=== PATIENT | female | born 1995 | race Caucasian/White ===

== ENCOUNTER 2016-11-10 11:15 | Inpatient (IN) | payer BC ==
[~2016-11-10] VITALS: Ht 170.2 cm; Wt 118.4 kg
[~2016-11-10 11:15] MED LIST: BCPILLS PO; BUPR-83 PO
[2016-11-10 11:54] LABS: URINE APPEARANCE CLEAR (CLEAR); URINE BILIRUBIN NEG (NEG); URINE COLOR YELLOW; URINE NITRITE NEG (NEG); URINE PH 6.5 (4.5-7.5); URINE SPECIFIC GRAVITY 1.025 (1.000-1.030); UROBILINOGEN NEG (NEG); ZZUR CULT IF INDIC CLEAN CATCH NO
[2016-11-10 11:56] LABS: MANUAL MICROSCOPIC REQUIRED? NO; REVIEW REQ? NO
[2016-11-10 12:12] LABS: BASO % 0.2 %; BASO ABS # 0.02 K/uL (0-0.2); COMPLETE YES; EOS % 0.8 %; HEMATOCRIT 40.5 % (37-47); IG% 0.2 %; LYMPH % 26.1 %; LYMPH ABS # 2.28 K/uL (1.2-3.4); MEAN CORPUSCULAR HGB CONC 34.8 g/dl (32-36); MEAN PLATELET VOLUME 10.4 fL (7.4-10.4); NEUT % 68.7 %; PLATELET COUNT 302 K/uL (130-400); RED BLOOD COUNT 4.55 M/uL (4.2-5.4); WHITE BLOOD COUNT 8.72 K/uL (4.8-10.8)
[2016-11-10 12:18] LABS: BENZODIAZEPINE, URINE NEG (NEG); COCAINE,URINE NEG (NEG); PHENCYCLIDINE, URINE NEG (NEG)
[2016-11-10 12:30] LABS: BUN/CREATININE RATIO 22.8 (10-20); CALCIUM 9.2 mg/dl (8.5-10.1); CREATININE 0.85 mg/dl (0.60-1.20)
[2016-11-10 12:33] LABS: ACETAMINOPHEN < 2 ug/ml (10-30)
[2016-11-10 12:40] LABS: ALB/GLOB RATIO 1.2 (0.9-2); THYROID STIMULATING HORMONE 0.811 uIu/ml (0.300-4.500)
[2016-11-10] MEDS ORDERED: hydrOXYzine HCL 25 MG TAB PO PRN (14:45)
[2016-11-10] MEDS ORDERED: ALUMINUM/MAGNESIUM SUSP 30 ML UDC PO PRN (14:45)
[2016-11-10] MEDS ORDERED: BISMUTH SUBSALICYLATE PER ML OMNICELL CHARGE PO PRN (14:45)
[2016-11-10] MEDS ORDERED: MAGNESIUM HYDROXIDE SUSP 30 ML UDC PO PRN (14:45)
[2016-11-10] MEDS ORDERED: ACETAMINOPHEN 325 MG TAB PO PRN (14:45)
[2016-11-10] MEDS ORDERED: SODIUM CHLORIDE 0.65% NA SOLN 45 ML (OCEAN) PRN (14:45)
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
[2016-11-10 16:51] VITALS: O2SAT 97
[2016-11-10 17:24] VITALS: BP 135/78; PULSE 72; TEMP 37; Ht 170.2 cm; Wt 118.4 kg
[2016-11-10] MEDS ORDERED: NURSING VERBAL MED ORDER ONE (19:30)
[2016-11-10] MEDS: NORETHINDRONE PO SCH (19:41)
[2016-11-10] MEDS ORDERED: INFLUENZA ADMINISTRATION CHARGE ONE (22:00)
[2016-11-10] MEDS ORDERED: INFLUENZA VIRUS QUAD VACCINE 0.5 ML SYR IM. ONE (22:00)
[2016-11-11 07:00] VITALS: BP_SYST 122; BP_SYST 128; BP_DIAS 76; BP_DIAS 84; PULSE 54; PULSE 73; TEMP 36.3
[2016-11-11] MEDS ORDERED: NORETHINDRONE PO SCH (09:00)
[2016-11-11 09:53] LABS: PREG INTERNAL NEGATIVE QC NEG CLEAR BACKGROUND; PREG INTERNAL POSITIVE QC POS CONTROL LINE
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
[2016-11-11] MEDS ORDERED: SERTRALINE HCL 50 MG TAB PO ONE (11:18)
[2016-11-11] MEDS: NORETHINDRONE PO SCH (19:32)
[2016-11-11] MEDS: hydrOXYzine HCL 25 MG TAB PO PRN (22:02)
[2016-11-12 07:03] VITALS: BP_SYST 106; BP_SYST 114; BP_DIAS 72; BP_DIAS 73; PULSE 49; PULSE 73; TEMP 36.6
[2016-11-12] MEDS: SERTRALINE HCL 50 MG TAB PO SCH (09:33)
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
[2016-11-12] MEDS: NORETHINDRONE PO SCH (19:50)
[2016-11-12] MEDS: hydrOXYzine HCL 25 MG TAB PO PRN (21:20)
[2016-11-13 07:04] VITALS: BP_SYST 106; BP_SYST 110; BP_DIAS 68; BP_DIAS 71; PULSE 47; PULSE 67; TEMP 36.5
[2016-11-13] MEDS: SERTRALINE HCL 50 MG TAB PO SCH (09:03)
--- NOTE | 2016-11-13 10:32 | Psych Management Progress Note ---
Psychiatry Miscellaneous Date of Service: Nov 13, 2016. Patient seen, MS assessed. Rates mood as 6/10, desires to move toward discharge planning. Cooperative with care and treatment plan as outlined by PROPERTY AND EQUIPMENT CLERK. Encouraged participation in therapeutic activities.
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
[2016-11-13] MEDS: NORETHINDRONE PO SCH (19:38)
[2016-11-13] MEDS: hydrOXYzine HCL 25 MG TAB PO PRN (20:30)
[2016-11-14 06:57] VITALS: BP_SYST 110; BP_SYST 119; BP_DIAS 74; PULSE 51; PULSE 60; TEMP 36.5
[2016-11-14] MEDS: SERTRALINE HCL 50 MG TAB PO SCH (09:16)
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
[2016-11-14] MEDS: NORETHINDRONE PO SCH (19:38)
[2016-11-14] MEDS: hydrOXYzine HCL 25 MG TAB PO PRN (20:30)
[2016-11-15 07:01] VITALS: BP_SYST 117; BP_SYST 119; BP_DIAS 70; BP_DIAS 74; PULSE 56; PULSE 57; TEMP 36.6
[2016-11-15] MEDS: SERTRALINE HCL 50 MG TAB PO SCH (08:34)
[2016-11-15] MEDS ORDERED: SERT1TAB68 PO (09:32)
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
[2016-11-16 14:34] LABS: SYNTHETIC CANNABINOIDS QL URIN NEGATIVE (Negative)
== END 2016-11-15 10:04 | disposition home or self-care (01) | DRG 881 ==
LOC: C.EDB 11:16 → C.MHU 14:33 → ENRESERV 16:27
PROVIDERS: ADMIT Psychiatry & Neurology Psychiatry; ATTEND Psychiatry & Neurology Psychiatry
DX: F32.9 Major depressive disorder, single episode, unspecified (principal); Z68.41 Body mass index [BMI] 40.0-44.9, adult; R45.851 Suicidal ideations; F41.1 Generalized anxiety disorder; F10.10 Alcohol abuse, uncomplicated; E66.9 Obesity, unspecified; F12.10 Cannabis abuse, uncomplicated

== ENCOUNTER → 2017-05-12 | Outpatient (CLI) | payer OTHER ==
[~2017-05-12] MED LIST changes: -BUPR-83 PO
== END | disposition home or self-care (01) ==
LOC: C.LABSPEC 14:38
PROVIDERS: ATTEND Physician Assistant
DX: Z30.430 Encounter for insertion of intrauterine contraceptive device (principal)

== ENCOUNTER 2019-05-05 23:19 | Inpatient (IN) ==
[2019-05-05] MEDS ORDERED: LORazepam 1 MG/2 ML VIAL IV STA (23:40)
[2019-05-05] MEDS ORDERED: SODIUM CHLORIDE 0.9% 1000ML 1,000 ML IV ONE (23:40)
--- NOTE | 2019-05-05 23:46 | Emergency Department Note ---
ED Provider Note Name: RENETTA GIBSON Age: 23 Sex: F Arrives Via: Walk-In Informant: Patient, Mother ED Provider: Milton Nichole MD Chief Complaint: Overdose Impression: Acute Drug Overdose Alcohol Intoxication Depression with Suicidal Ideation Medical Decision Makin yr old female arrives intoxicated with her mother admitted to overdose of 25 tablets 100mg Lamictal around 10pm tonight. Patient tachycardic, a bit trem ulous and seems a bit anticholinergic though may just be alcohol intoxication on top of all of this. EKG OK. Vitals with tachy but bp and sats good. Labs with elevated ETOH no tyl/asa. Patient discussed with poison control who advise at minimum 8 hour rule out and given patient status and history will have hospitalist evaluate further. 302 petition by mother but as patient not medically clear will not sign off on this yet. Stable throughout ED feeling better and HR improved with ativan. Prior Medical Record and Triage/Nursing Notes reviewed by Me Additional history obtained from mother Differentials:Overdose, toxicologic, infection, hypoglycemia, electrolyte abnormalities, cardiac sources, intracerebral event, neurologic, trauma, as well as other pathologies. amongst other pathologies. Vital Signs: reviewed and remarkable for Tachy Interventions: Saline Lock, NSS bolus 1L IV x 2, Ativan 1mg IV x 2 Labs:Reviewed and remarkable for +etoh Imaging:none EKG:Per My Interpretation: Indication Overdose: Sinus Tach 10 bpm, qtc 455, qrs 80. No Ectopy. No Ischemia. No previous for comparison. Cardiac/Tele Monitoring: Cardiac Monitoring: An Order was placed for continuous cardiac monitoring. The monitor shows a rate of 100 with a sinus rhythm. Consults:Poison Control - Obs, fluids, ativan. Dr Love for hospitalization Plan: Disposition:Hospitalization. Condition: Good Blood pressure:Normal.No Referral necessary History of Present Illness:23 / F arrives for evaluation of overdose. Patient broke up with boyfriend yesterday and thus was drinking alcohol all day with friends. She admits she has been very sad and depressed due to break up. On g etting home around 10pm she took 25 tablets of 100mg Lamictal. She did not take any other medications. She is not sure if this was a plan to kill herself. She admits 2 previous overdoses with admission to facility in [place] Summer 2018, and to [facility] [place] in [place]. She denies drug use this evening though admits snorting cocaine 2 weekends ago. She has been feeling more sad recently. Denies other injury to self nor cutting. No treatment prior to arrival. Nothing makes better nor worse. ROS: See above HPI for pertinent positives & negatives. A total of 10 systems reviewed and were otherwise negative. 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 Tremulous. Mildly intoxicated appearing. EYES: No scleral icterus, unremarkable pupils. ENT: Mucous membranes dry, no nasal congestion. NECK: No masses appreciated, nomeningismus, trachea is midline. RESPIRATORY: No dyspnea. Clear to auscultation and equal bilaterally. No wheeze, no rhonchi. CARDIOVASCULAR: Tachy.No murmurs, rubs, gallops appreciated. GASTROINTESTINAL: Abdomen soft, non-tender, no peritonitis.Bowel sounds positive.No masses appreciated. BACK: No midline tenderness, no CVA tenderness EXTREMITIES: Normal motion all extremities, no cyanosis, no edema. NEUROLOGIC: Alert and oriented, no acute motor or sensory deficits, no focal weakness, cranial nerves grossly intact. SKIN: No rash, no jaundice, no diaphoresis. PSYCH: Inappropriate response to situation, periodically laughing, admits suicide attempt, admits depression GCS: 15 ED Course: Times/Reassessments: Multiple, sleeping, HR improved with ativan and fluids Milton Nichole MD Impression & Plan Acute drug overdose, Alcohol intoxication, Depression with suicidal ideation Past Med/Surg History Social History Preferred Language: Martiniquais Communication Ability: Effective Visual Impairment: No Limitations Hearing Ability: Normal Pediatric Sports Medicine Specialist Required: No marital status: Single Current Living Situation: Family current occupational status: unemployed Feels Safe at Home: Yes Smoking Status: Current every day smoker Second Hand Exposure: No ; Hx Alcohol Use: Yes Alcohol Intake Frequency: Weekly Hx Substance Use: Yes Childhood Exposure to Second-Hand Smoke: No Dental Care, Regularly: Yes Physical Activity Frequency: 1-2 Times per Week Seatbelt Use: always Sunscreen Use: Yes Results & Data Vital Signs Vital Signs - 24 hr 05/05/19 23:20 05/05/19 23:37 05/06/19 00:00 Temperature 36.4 C L Temperature Source Oral Pulse Rate 132 H 119 H 99 H Respiratory Rate 20 17 22 Respiratory Effort / Characteristics Non-Labored Respiratory Depth Normal Blood Pressure 121/72 148/80 H 105/58 L Blood Pressure Mean 88 113 72 Pulse Oximetry 100 98 96 Oxygen Delivery Method Room Air Sepsis Recent Fever Within 48 Hours No Sepsis Action Taken by Nursing No Action Required 05/06/19 00:30 05/06/19 01:00 05/06/19 01:30 Temperature Temperature Source Pulse Rate 94 H 99 H 101 H Respiratory Rate 23 24 25 H Respiratory Effort / Characteristics Respiratory Depth Blood Pressure 87/35 L 90/40 L 122/84 Blood Pressure Mean 48 56 96 Pulse Oximetry 94 96 92 Oxygen Delivery Method Sepsis Recent Fever Within 48 Hours Sepsis Action Taken by Nursing 05/06/19 02:01 05/06/19 02:03 05/06/19 02:30 Temperature Temperature Source Pulse Rate 113 H 122 H 108 H Respiratory Rate 15 24 17 Respiratory Effort / Characteristics Respiratory Depth Blood Pressure 113/77 113/77 122/81 Blood Pressure Mean 89 86 96 Pulse Oximetry 100 99 96 Oxygen Delivery Method Sepsis Recent Fever Within 48 Hours Sepsis Action Taken by Nursing 05/06/19 03:00 05/06/19 03:31 05/06/19 04:01 Temperature Temperature Source Pulse Rate 105 H 107 H 105 H Respiratory Rate 19 19 17 Respiratory Effort / Characteristics Respiratory Depth Blood Pressure 98/72 L 124/67 123/73 Blood Pressure Mean 77 110 83 Pulse Oximetry 100 100 98 Oxygen Delivery Method Sepsis Recent Fever Within 48 Hours Sepsis Action Taken by Nursing Laboratory Data Result diagrams: 05/05/19 23:45 05/05/19 23:45 Lab Results 05/05/19 05/05/19 05/05/19 Range/Units 23:45 23:45 23:45 WBC 11.21 H (4.8-10.8) K/uL RBC 4.77 (4.2-5.4) M/uL Hgb 14.8 (12.0-16.0) g/dL Hct 42.5 (37-47) % MCV 89.1 (80-100) fL MCH 31.0 (25-34) pg MCHC 34.8 (32-36) g/dL RDW Std Deviation 42.8 (36.4-46.3) fL RDW Coeff of Lanette 13.1 (11.5-14.5) % Plt Count 322 (130-400) K/uL MPV 10.2 (7.4-10.4) fL Immature Gran % (Auto) 0.3 % Neut % (Auto) 48.1 % Lymph % (Auto) 45.1 % [place] % (Auto) 4.5 % Eos % (Auto) 1.7 % Baso % (Auto) 0.3 % Immature Gran # (Auto) 0.03 H (0.00-0.02) K/uL Neut # (Auto) 5.39 (1.4-6.5) K/uL Lymph # (Auto) 5.06 H (1.2-3.4) K/uL [place] # (Auto) 0.51 (0.11-0.59) K/uL Eos # (Auto) 0.19 (0-0.5) K/uL Baso # (Auto) 0.03 (0-0.2) K/uL Sodium 143 (136-145) mmol/L Potassium 3.4 L (3.5-5.1) mmol/L Chloride 112 H (98-107) mmol/L Carbon Dioxide 23 (21-32) mmol/L Anion Gap 8.0 (3-11) BUN 7 (7-18) mg/dl Creatinine 0.80 (0.6-1.2) mg/dl Est Cr Clr Drug Dosing Not Reportable Est GFR ( Amer) 121.3 Est GFR (Non-Af Amer) 104.7 BUN/Creatinine Ratio 8.4 L (10-20) Glucose 106 H (70-99) mg/dl Calcium 8.7 (8.5-10.1) mg/dl Magnesium 2.4 (1.8-2.4) mg/dl Total Bilirubin 0.2 (0.2-1) mg/dl AST 19 (15-37) U/L ALT 26 (12-78) U/L Alkaline Phosphatase 80 (45-117) U/L Total Protein 7.6 (6.4-8.2) gm/dl Albumin 4.0 (3.4-5.0) gm/dl Globulin 3.6 (2.5-4.0) gm/dl Albumin/Globulin Ratio 1.1 (0.9-2) TSH 1.720 (0.300-4.500) uIu/ml Salicylates < 1.7 L (2.8-20) mg/dl Acetaminophen < 2 L (10-30) ug/ml Ethyl Alcohol mg/dL (0-3) mg/dl 05/05/19 Range/Units 23:45 WBC (4.8-10.8) K/uL RBC (4.2-5.4) M/uL Hgb (12.0-16.0) g/dL Hct (37-47) % MCV (80-100) fL MCH (25-34) pg MCHC (32-36) g/dL RDW Std Deviation (36.4-46.3) fL RDW Coeff of Lanette (11.5-14.5) % Plt Count (130-400) K/uL MPV (7.4-10.4) fL Immature Gran % (Auto) % Neut % (Auto) % Lymph % (Auto) % [place] % (Auto) % Eos % (Auto) % Baso % (Auto) % Immature Gran # (Auto) (0.00-0.02) K/uL Neut # (Auto) (1.4-6.5) K/uL Lymph # (Auto) (1.2-3.4) K/uL [place] # (Auto) (0.11-0.59) K/uL Eos # (Auto) (0-0.5) K/uL Baso # (Auto) (0-0.2) K/uL Sodium (136-145) mmol/L Potassium (3.5-5.1) mmol/L Chloride (98-107) mmol/L Carbon Dioxide (21-32) mmol/L Anion Gap (3-11) BUN (7-18) mg/dl Creatinine (0.6-1.2) mg/dl Est Cr Clr Drug Dosing Est GFR ( Amer) Est GFR (Non-Af Amer) BUN/Creatinine Ratio (10-20) Glucose (70-99) mg/dl Calcium (8.5-10.1) mg/dl Magnesium (1.8-2.4) mg/dl Total Bilirubin (0.2-1) mg/dl AST (15-37) U/L ALT (12-78) U/L Alkaline Phosphatase (45-117) U/L Total Protein (6.4-8.2) gm/dl Albumin (3.4-5.0) gm/dl Globulin (2.5-4.0) gm/dl Albumin/Globulin Ratio (0.9-2) TSH (0.300-4.500) uIu/ml Salicylates (2.8-20) mg/dl Acetaminophen (10-30) ug/ml Ethyl Alcohol mg/dL 199.0 H (0-3) mg/dl Administered Medications Discontinued Medications Sodium Chloride (Nss 1000ml) 1,000 mls @ 999 mls/hr IV .Q1H1M ONE Stop: 05/06/19 00:40 Last Infusion: 05/06/19 00:59 Dose: 0 mls/hr Documented by: [id number] Admin: 05/06/19 00:06 Dose: 999 mls/hr Documented by: [id number] Lorazepam (Ativan) 1 mg in 2 mls @ 2 mls/min IV NOW STA Stop: 05/05/19 23:41 Last Admin: 05/06/19 00:06 Dose: 2 mls/min Documented by: [id number] Sodium Chloride (Nss 1000ml) 1,000 mls @ 999 mls/hr IV .Q1H1M ONE Stop: 05/06/19 03:18 Last Infusion: 05/06/19 03:30 Dose: 0 mls/hr Documented by: [id number] Admin: 05/06/19 02:29 Dose: 999 mls/hr Documented by: [id number] Lorazepam (Ativan) 1 mg in 2 mls @ 2 mls/min IV NOW STA Stop: 05/06/19 04:00 Last Admin: 05/06/19 04:04 Dose: 2 mls/min Documented by: [id number] Potassium Chloride (Klor-Con M20) 20 meq PO NOW STA Stop: 05/06/19 04:26 Last Admin: 05/06/19 04:48 Dose: 20 meq Documented by: [id number] Discharge Plan Visit Data Chief Complaint: Overdose (Intentional) Stated Complaint: BROKEN NOSE ED Provider: Milton Nichole Discharge Problem: Acute drug overdose, Alcohol intoxication, Depression with suicidal ideation Discharge Instructions Interventions: ED Discharge Assessment Last Done: 05/06/19 04:35 Discharge Problem: Acute drug overdose Qualifiers: Encounter type: initial encounter Injury intent: intentional self-harm Qualified Code(s): T50.902A - Poisoning by unspecified drugs, medicaments and biological substances, intentional self-harm, initial encounter Alcohol intoxication Qualifiers: Complication of substance-induced condition: uncomplicated Qualified Code(s): F10.920 - Alcohol use, unspecified with intoxication, uncomplicated
[2019-05-06 00:05] LABS: Hematocrit (blood only) 42.5 % (37-47); Hemoglobin 14.8 g/dL (12.0-16.0); Mean Corpuscular Hgb Conc 34.8 g/dL (32-36); Mean Corpuscular Volume 89.1 fL (80-100); Mean Platelet Volume 10.2 fL (7.4-10.4); Platelet Count 322 K/uL (130-400); RDW Coefficient of Variation 13.1 % (11.5-14.5); RDW Standard Deviation 42.8 fL (36.4-46.3); Red Blood Count 4.77 M/uL (4.2-5.4); White Blood Count 11.21 K/uL (4.8-10.8)
[2019-05-06 00:21] LABS: Alanine Aminotransferase 26 U/L (12-78); Aspartate Aminotransferase 19 U/L (15-37); BUN Creatinine Ratio 8.4 (10-20); Blood Urea Nitrogen 7 mg/dl (7-18); Calcium 8.7 mg/dl (8.5-10.1); Carbon Dioxide 23 mmol/L (21-32); Chloride 112 mmol/L (98-107); Est GFR (African American) 121.3; Est GFR (Non-African American) 104.7; Glucose 106 mg/dl (70-99); Potassium 3.4 mmol/L (3.5-5.1); Sodium 143 mmol/L (136-145)
[2019-05-06 00:32] LABS: Albumin Globulin Ratio 1.1 (0.9-2); Alkaline Phosphatase 80 U/L (45-117); Bilirubin,Total 0.2 mg/dl (0.2-1); Globulin 3.6 gm/dl (2.5-4.0); Total Protein 7.6 gm/dl (6.4-8.2)
[2019-05-06 00:38] LABS: Acetaminophen < 2 ug/ml (10-30)
[2019-05-06 00:39] LABS: Salicylate < 1.7 mg/dl (2.8-20)
[2019-05-06 00:57] LABS: Basophils # (auto) 0.03 K/uL (0-0.2); Basophils % (auto) 0.3 %; Eosinophils # (auto) 0.19 K/uL (0-0.5); Eosinophils % (auto) 1.7 %; Immature Granulocytes # (auto) 0.03 K/uL (0.00-0.02); Immature Granulocytes % (auto) 0.3 %; Lymphocytes # (auto) 5.06 K/uL (1.2-3.4); Lymphocytes % (auto) 45.1 %; Monocytes # (auto) 0.51 K/uL (0.11-0.59); Monocytes % (auto) 4.5 %; Neutrophils # (auto) 5.39 K/uL (1.4-6.5); Neutrophils % (auto) 48.1 %
[2019-05-06] MEDS ORDERED: SODIUM CHLORIDE 0.9% 1000ML 1,000 ML IV ONE (02:18)
--- NOTE | 2019-05-06 03:16 | History & Physical Report ---
Date of Service May 06, 2019 Assessment & Plan (1) Overdose: 23 yo F with PMH Depression, Anxiety, Bipolar presents to [facility] after intentional overdose of Lamotrigine with intent to kill herself. Intentional Overdose -ingested 25 tabs of 100mg Lamictal around 10PM 05/05/19. Half life ~29hrs -pt did demonstrate some OD sxs of tachycardia, tachypnea, HTN and one episode of emesis upon arrival, but more serious/severe SE of seizure/myoclonus, [place] [place] SANDER depression, cardiac conduction delays, wide complex tachycardia, AMS, rhabdo not seen -Lamotrigine level pending -borderline prolonged QTc 455 on admission. Repeat daily EKG -tx is mostly supportive care -IV Ativan 1mg prn ordered for any agitation -IVF NSS at 150 ml/hr -1:1 sitter -Psych Consult appreciated ----ADDENDUM 05/06/2019 13:56------ -Patient at this point in time stable for transfer to psych. -The concern for ?arrhythmia noted on rhythm strip this morning determined to be secondary to artifact. -Will place discharge orders. Depression/Anxiety/Bipolar -holding home meds of fluoxetine, lamictal, trazodone until psych eval -was following with [facility] then [facility], last appt in Jan. Unclear if still established there Tobacco Abuse -cont nicoderm patch -tobacco cessation counseling given Hypokalemia -K 3.4 on admission -repleted with 20meq PO KCl in ED -recheck in AM FEN/GI: NSS at 150. Regular Diet, Safe Tray DVT Prophylaxis: Low Risk per Admission Calculator, Ambulation Full Code Dispo: Med Tele History of Present Illness Chief Complaint: OD Primary Care Provider: NO PCP 23 yo F with PMH Depression, Anxiety, Bipolar presents to [facility] after intentional overdose. History given by pt and somewhat limited 2/2 pt cooperation and drowsiness. States reason for OD is because she broke up with her boyfriend Olivia 04/30. She has been sad and depressed due to the break up. 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 Mother picked her up around 830PM and brought back to house. Parents found pt around 1030PM and saw open bottle of pills, woke her up and brought into ER. Pt states she ingested 25 tabs of 100mg Lamictal around 10PM with the intention of killing herself. No other ingestion besides lamictal and alcohol. Notes that she does occasionally do cocaine, but not anytime recently. No other bodily injury like cutting performed LAB TECHNOLOGIST. Of note, pt was previously admitted to [facility] psych unit in Nov 2016 for suicidal ideation and was discharged on Zoloft and also has been admitted to a hospital in [place], [place] for overdose of 60 tabs of Zoloft in summer. She currently follows with [facility] as an outpt, but has not been there since Jan 2019. Pt with no other acute concerns or complaints. Pt with one episode of emesis in ED. EKG: Sinus tachycardia Pertinent Labs: WBC 11.2, K 3.4, ETOH 199, Lamictal Pending ER Course: IV Lorazepam 1mg, NSS Social Hx: Tobacco 4-6 cigs/day, Alcohol- almost every weekend, Illicit Drug Use- MJ, Cocaine Allergies Allergy/AdvReac Type Severity Reaction Status Date / Time No Known Allergies Allergy Unverified 05/05/19 23:30 Home Medications Home Medications Medication Instructions Recorded Confirmed Type levonorgestrel 20 mcg/24 hours (5 1 device IU CONTINOUS 02/28/19 05/05/19 History yrs) 52 mg intrauterine device fluoxetine 40 mg capsule 40 mg PO DAILY #14 cap 03/05/19 05/05/19 Rx lamotrigine 100 mg tablet 100 mg PO DAILY #14 tab 03/05/19 05/05/19 Rx trazodone 50 mg tablet 25 mg PO DAILY PRN #14 tab 03/05/19 05/05/19 Rx doxycycline monohydrate 50 mg 50 mg PO DAILY #30 cap 04/02/19 05/05/19 Rx capsule Past Med/Surg History Medical History (Updated 05/07/19 @ 11:03 by Sarah Leon MD) Alcohol abuse Borderline personality disorder Contraception management Dietary counseling Exercise counseling Surgical History History of knee surgery Social History Preferred Language: Telugu Communication Ability: Effective Visual Impairment: No Limitations Hearing Ability: Normal Milk Pickup Driver Required: No Beliefs That Will Affect Care: None marital status: Single Current Living Situation: Parent current occupational status: unemployed Feels Safe at Home: Yes Smoking Status: Current every day smoker Tobacco Type: cigarettes ; Cigarettes Per Day: 7 ; Second Hand Exposure: No ; Hx Alcohol Use: Yes Alcohol type: beer and hard liquor Alcohol Intake Frequency: Weekly Hx Substance Use: Yes substance use type: marijuana and crack/cocaine Last Used Substance: Days (ago) Childhood Exposure to Second-Hand Smoke: No Dental Care, Regularly: Yes Physical Activity Frequency: 1-2 Times per Week Seatbelt Use: always Sunscreen Use: Yes Review of Systems Review of Systems: All systems reviewed & are unremarkable except as noted in HPI & below Physical Exam Constitutional: WD/WN, vitals as above + intoxicated appearing and + obese GCS 15 Eyes: PERRL dilated pupils ENMT: external ear and nose normal, oropharynx normal Mouth: + oral mucosal abnormality (dry MM) Respiratory: normal respiratory effort, lungs clear to auscultation Cardiovascular: Rate/Rhythm: regular rhythm and + tachycardic Gastrointestinal (Abdomen): normal bowel sounds, soft, nontender, no hepatosplenomegaly Skin: no rashes, warm and dry Psychiatric: Orientation: alert and oriented x 3 Mood: + depressed mood Results & Data Vital Signs (Past 12 Hours) Vital Signs Temp Pulse Resp BP Pulse Ox 05/06/19 02:01 113 H 15 113/77 100 05/06/19 01:30 101 H 25 H 122/84 92 05/06/19 01:00 99 H 24 90/40 L 96 05/06/19 00:30 94 H 23 87/35 L 94 05/06/19 00:00 99 H 22 105/58 L 96 05/05/19 23:37 119 H 17 148/80 H 98 05/05/19 23:20 36.4 C L 132 H 20 121/72 100 Laboratory Results Laboratory Results - last 24 hr 05/05/19 05/05/19 05/05/19 23:45 23:45 23:45 WBC 11.21 H RBC 4.77 Hgb 14.8 Hct 42.5 MCV 89.1 MCH 31.0 MCHC 34.8 RDW Std Deviation 42.8 RDW Coeff of Lanette 13.1 Plt Count 322 MPV 10.2 Immature Gran % (Auto) 0.3 Neut % (Auto) 48.1 Lymph % (Auto) 45.1 [place] % (Auto) 4.5 Eos % (Auto) 1.7 Baso % (Auto) 0.3 Immature Gran # (Auto) 0.03 H Neut # (Auto) 5.39 Lymph # (Auto) 5.06 H Cherry # (Auto) 0.51 Eos # (Auto) 0.19 Baso # (Auto) 0.03 Sodium 143 Potassium 3.4 L Chloride 112 H Carbon Dioxide 23 Anion Gap 8.0 BUN 7 Creatinine 0.80 Est Cr Clr Drug Dosing Not Reportable Est GFR ( Amer) 121.3 Est GFR (Non-Af Amer) 104.7 BUN/Creatinine Ratio 8.4 L Glucose 106 H Calcium 8.7 Total Bilirubin 0.2 AST 19 ALT 26 Alkaline Phosphatase 80 Total Protein 7.6 Albumin 4.0 Globulin 3.6 Albumin/Globulin Ratio 1.1 TSH 1.720 Salicylates < 1.7 L Acetaminophen < 2 L Lamotrigine Ethyl Alcohol mg/dL 05/05/19 05/05/19 23:45 23:45 WBC RBC Hgb Hct MCV MCH MCHC RDW Std Deviation RDW Coeff of Lanette Plt Count MPV Immature Gran % (Auto) Neut % (Auto) Lymph % (Auto) [place] % (Auto) Eos % (Auto) Baso % (Auto) Immature Gran # (Auto) Neut # (Auto) Lymph # (Auto) [place] # (Auto) Eos # (Auto) Baso # (Auto) Sodium Potassium Chloride Carbon Dioxide Anion Gap BUN Creatinine Est Cr Clr Drug Dosing Est GFR ( Amer) Est GFR (Non-Af Amer) BUN/Creatinine Ratio Glucose Calcium Total Bilirubin AST ALT Alkaline Phosphatase Total Protein Albumin Globulin Albumin/Globulin Ratio TSH Salicylates Acetaminophen Lamotrigine Pending Ethyl Alcohol mg/dL 199.0 H Code Status & VTE Plan Code Status FULL Supervising Physician Co-Signing Physician Notes Attending addendum: I have physically seen this patient, have supervised the medical residents activities, and agree with the H&P unless as otherwise noted. Assessment and Plan: Intentional Lamictal/alcohol overdose- Ingestion of 25 tablets of neck 200 mg and alcohol level at 199 upon admission. Admit to telemetry unit to monitor for potential cardiac dysrhythmia. Serial EKGs and follow QTc interval particular. NSS 150 mils per hour. One-to-one sitter. Consult psychiatry. Remainder of orders and notations as noted. Resident Activity Tracking Resident Involvement: Resident Care Provided Care Provided: Adult Hospital Medicine
[2019-05-06] MEDS ORDERED: LORazepam 1 MG/2 ML VIAL IV STA (03:59)
[2019-05-06] MEDS ORDERED: POTASSIUM CHLORIDE 20 MEQ TABCR PO STA (04:25)
[2019-05-06 05:10] LABS: Magnesium 2.4 mg/dl (1.8-2.4)
[2019-05-06] MEDS ORDERED: LORazepam 1 MG/2 ML VIAL IV PRN (05:24)
[2019-05-06] MEDS ORDERED: ONDANSETRON INJ 2 MG/ML 2 ML VIAL IV PRN (05:24)
[2019-05-06] MEDS ORDERED: ALUMINUM/MAGNESIUM SUSP 30 ML UDC PO PRN (05:24)
[2019-05-06] MEDS: SODIUM CHLORIDE 0.9% 1000ML 1,000 ML IV SCH ×2 (05:50→13:22)
[2019-05-06 07:18] LABS: Appearance Urine Clear (Clear); Bilirubin Urine Negative (Negative); Blood Urine Negative (Negative); Color Urine Yellow; Glucose Urine UA Negative (Negative); Ketones Urine Trace (Negative); Leukocyte Esterase Urine Negative (Negative); Nitrite Urine Negative (Negative); Protein Urine Negative (Negative); Specific Gravity Urine 1.021 (1.000-1.030); Urobilinogen Urine Negative (Negative); pH Urine 6.5 (4.5-7.5)
[2019-05-06 07:31] LABS: Pregnancy Test, Urine Negative (Negative)
[2019-05-06 08:03] LABS: Amphetamines+Metham, Urine Neg (Neg); Barbiturates, Urine Neg (Neg); Benzodiazepine, Urine Neg (Neg); Cocaine, Urine Neg (Neg); MDMA (Ecstacy), Urine Neg (Neg); Methadone, Urine Neg (Neg); Opiate, Urine Neg (Neg); Phencyclidine, Urine Neg (Neg)
[2019-05-06] MEDS ORDERED: NICOTINE 14 MG/24 HR PATCH TD SCH (09:00)
--- NOTE | 2019-05-06 11:10 | Psychiatric Consultation ---
Date of Consultation May 06, 2019 Impression / Recommendations Impression 23 yo female with a history of SI, prior suicide attempt in 2019, SIB, impulsive substance use, reactivity to perceived rejection, possible bipolar dx, presents s/p significant lamictal ingestion while intoxicated. Current dx is unspecified depressive disorder. History could also be consistent with borderline personality disorder, won't be able to obtain interim records until 05/07/2019. Plan: Inpatient psychiatric hospitalization is medically necessary following medical clearance and she currently states she is agreeable to 201. If this should change, she should not be allowed to leave the hospital as 302 commitment proceedings would need to commence for safety, my understanding is there is a 302 petitioning statement on chart by mother. Continue 1-on-1 pending transfer. Continue to hold psychiatric medications. Risk Factors Assessment Do You Have Access To A Gun?: No Psych History Identifying Data 23 yo female with a history of 2 prior inpatient psychiatric hospitalizations (at least one following OD) for depression with SI admit to medical with a 302 petitioning statement on the chart by mother following an OD attempt. Chief Complaint "I wish it would have worked", referring to her suicide attempt History of Present Illness States that she is diagnosed with bipolar depression, last seen at [facility] in Jan but reportedly stopped all services as felt she was doing well. Had broken up with her boyfriend 2 days ago but yesterday found out he had already slept with another woman which led her to seek him out and check his phone messages. After this she went to a friend's camp to "get wasted" and drank unknown amount of ETOH. She eventually called her parents (with whom she lives) to pick her up and on return home in the early evening ingested nearly a whole bottle of Lamictal 100 mg. She did not tell family about the attempt, mother reportedly saw open bottle and that it had recently been filled and intervened to get her to ED. ED course complicated by emesis and ultimately admit to medical for additional monitoring. This am she has 1 on 1 at bedside. Reports ongoing depression with SI. No intent or plan in hospital, still not feeling physically well. As far as bipolar symptoms, outpatient records will need to be obtained, she relates brief (a few hours) periods of elevated mood where she'll go shopping and spend more than she should. She has uses substances and has a history of impulsive self-harm (cutting) prior to 2017 hospitalization. Her ODs have both been reactive to relationship stressors. Past Psychiatric History Previous Psych History: unspecified depressive disorder vs bipolar with some problematic binge drinking Outpatient Services: most recent [facility], may have followed at [facility] for a period of time after 2017 stay. She lived in [place] with a relative for 6 months around her 2019 hospitalization Previous Psych Admissions: 2017--[facility], depression with suicide note--switched from Wellbutrin to Zoloft 2019[place], Zoloft OD as suicide attempt, switched to Prozac Do You Have Access To A Gun?: No History of Previous Suicide Attempt: Yes Describe Attempts in the Past: Zoloft OD 2019 Past Medication Trials: Wellbutrin, Zoloft, Prozac, Lamictal, trazodone Allergies Allergy/AdvReac Type Severity Reaction Status Date / Time No Known Allergies Allergy Unverified 05/05/19 23:30 Home Medications Home Medications Medication Instructions Recorded Confirmed Type levonorgestrel 20 mcg/24 hours (5 1 device IU CONTINOUS 02/28/19 05/05/19 History yrs) 52 mg intrauterine device fluoxetine 40 mg capsule 40 mg PO DAILY #14 cap 03/05/19 05/05/19 Rx lamotrigine 100 mg tablet 100 mg PO DAILY #14 tab 03/05/19 05/05/19 Rx trazodone 50 mg tablet 25 mg PO DAILY PRN #14 tab 03/05/19 05/05/19 Rx doxycycline monohydrate 50 mg 50 mg PO DAILY #30 cap 04/02/19 05/05/19 Rx capsule Family History brother and uncle with anxiety, brother also depression, alcoholism in a great uncle Substance Abuse History unclear frequency but several year history of binge drinking to the point of blackouts, recent cocaine, likely regular MJ. Note no urine tox or preg obtained in ED, will require for med clearance. 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 Beliefs That Will Affect Care: None marital status: Single Current Living Situation: Parent current occupational status: unemployed Other Information That Helps Us Care for You: No Feels Safe at Home: Yes Safety Concerns: Feels Safe At This Time Smoking Status: Current every day smoker Tobacco Type: cigarettes ; Cigarettes Per Day: 7 ; Second Hand Exposure: No ; Hx Alcohol Use: Yes Alcohol type: beer and hard liquor Alcohol Intake Frequency: Weekly Hx Substance Use: Yes substance use type: marijuana and crack/cocaine Last Used Substance: Days (ago) Childhood Exposure to Second-Hand Smoke: No Dental Care, Regularly: Yes Physical Activity Frequency: 1-2 Times per Week Seatbelt Use: always Sunscreen Use: Yes Physical Exam Psychiatric: Orientation: alert Apperance: + disheveled Eye Contact: + poor eye contact Motor Behavior: no abnormal motor movements Speech: normal rate/rhythm/volume of speech Affect: + depressed affect Mood: + depressed mood Thought Process: linear/logical thought process Thought Content: reality based without delusions remains suicidal, upset her plan to OD did not work Homicidal Thoughts: denies homicidal thoughts Hallucinations: no auditory hallucinations and no visual hallucinations Cognition: recent memory grossly intact Estimated Intelligence: consistent with education level Insight: + poor insight Judgement: + poor judgement Vital Signs (Past 24 Hours): Last Vital Signs Temp 36.9 C 05/06/19 06:54 Pulse 107 H 05/06/19 06:54 Resp 18 05/06/19 06:54 BP 122/74 05/06/19 06:54 Pulse Ox 97 05/06/19 06:54 Review of Systems All systems reviewed & are unremarkable except as noted in HPI & below Results & Data (PSY) Medications Administered Sodium Chloride (Nss 1000ml) 1,000 mls @ 150 mls/hr IV .[id number] RORO Stop: 06/05/19 05:23 Last Admin: 05/06/19 05:50 Dose: 150 mls/hr Documented by: [id number] Nicotine (Nicoderm Cq) 14 mg TD QAM RORO Stop: 06/05/19 08:59 Last Admin: 05/06/19 08:05 Dose: 14 mg Documented by: [id number] Coding Level of Care Code 93290 U Intl Hosp Care Lvl 2
[2019-05-06 12:07] VITALS: TEMP 97.9
[2019-05-06 12:26] VITALS: PULSE 90; O2SAT 96
[2019-05-06 14:45] VITALS: BP 122/74
--- NOTE | 2019-05-06 18:28 | Electrocardiogram Report ---
Test Reason : Blood Pressure : / mmHG Vent. Rate : 109 BPM Atrial Rate : 109 BPM P-R Int : 164 ms QRS Dur : 080 ms QT Int : 338 ms P-R-T Axes : 033 063 018 degrees QTc Int : 455 ms Sinus tachycardia Otherwise normal ECG No previous ECGs available Confirmed by Danny Salazar ([id number]) on 05/06/2019 6:28:26 PM Referred By: REFERRED SELF Confirmed By:Vignesh Salazar
--- NOTE | 2019-05-08 04:15 | Billing Data ---
Date of Service May 08, 2019 Coding Level of Care Code 63509 Initial Inpt Care Lvl 2
--- NOTE | 2019-05-16 18:37 | Discharge Summary ---
Date of Service 2019 - dc summary apparently accidentaly in wrong V# (still in chart, but wrong episode) -- pasted in below with hopes it will help clarify care and avoid confusion Admission HPI Per Admitting Provider 23 yo F with PMH Depression, Anxiety, Bipolar presents to [facility] after intentional overdose. History given by pt and somewhat limited 2/2 pt cooperation and drowsiness. States reason for OD is because she broke up with her boyfriend Olivia 04/30. She has been sad and depressed due to the break up. 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 Mother picked her up around 830PM and brought back to house. Parents found pt around 1030PM and saw open bottle of pills, woke her up and brought into ER. Pt states she ingested 25 tabs of 100mg Lamictal around 10PM with the intention of killing herself. No other ingestion besides lamictal and alcohol. Notes that she does occasionally do cocaine, but not anytime recently. No other bodily injury like cutting performed IMAGING AIDE. Of note, pt was previously admitted to [facility] psych unit in Nov 2016 for suicidal ideation and was discharged on Zoloft and also has been admitted to a hospital in [place], [place] for overdose of 60 tabs of Zoloft in summer. She currently follows with [facility] as an outpt, but has not been there since Jan 2019. Pt with no other acute concerns or complaints. Pt with one episode of emesis in ED. EKG: Sinus tachycardia Pertinent Labs: WBC 11.2, K 3.4, ETOH 199, Lamictal Pending ER Course: IV Lorazepam 1mg, NSS Social Hx: Tobacco 4-6 cigs/day, Alcohol- almost every weekend, Illicit Drug Use- MJ, Cocaine Principal Diagnosis overdose Discharge Data Allergies Allergy/AdvReac Type Severity Reaction Status Date / Time No Known Allergies Allergy Unverified 05/05/19 23:30 Consultations 05/06/19 01:07 ED Decision to Admit Stat 05/06/19 05:24 Consult Psychiatry Routine 05/06/19 05:48 Consult Behavioral Health Liaison Routine Hospital Course (1) Overdose: Patient: RENETTA GIBSON OAdmit Date: 05/06/19 MR#: [id number] Phy: Sarah Leon MD Acct ID:[id number] Phy: PCP,NO Date: 1995Fam Phy: Age: 23Location: 3S Sex: F Room/Bed: S326-2 cc: ~ *NOTICE TO RECEIVING [employer]/AGENCY This information is strictly Confidential and protected under [place] law. [place] law prohibits you from makin g any further disclosure of this information unless further disclosure is expressly permitted by the written consent of the person to whom it pertains or is authorized by law. A general authorization for the release of medical or other information is not sufficient for this purpose. Hospital accepts no responsibility if the information is made available to any other person, INCLUDING THE PATIENT. Date of Service May 06, 2019 Principal Diagnosis suicide attempt by overdose Discharge Exam see progress note done same day in conjunction w dr gilliam. nad, breathing unlabored Discharge Data Allergies Allergy/AdvReac Type Severity Reaction Status Date / Time No Known Allergies Allergy Unverified 05/05/19 23:30 Hospital Course (1) Acute drug overdose: -stable; mentation improving no hepatic issues; desk monitor raised question of arrhythmia but after further review appears to have been artifact (and no clear mechanism for rhythm issues with overdose taken) ----fortunately medically stable for transfer to inpatient psych see same day progress note otherwise Total Time Total Time Spent Total Time Spent (In Minutes): <30 Discharge Plan Discharge Items Reason For Visit: DEPRESSION NOS Medications and DC Order Prescriptions: No Action trazodone 50 mg tablet 25 mg PO DAILY PRN (Reason: insomnia) Qty: 14 RF: 0 lamotrigine 100 mg tablet 100 mg PO DAILY Qty: 14 RF: 0 fluoxetine 40 mg capsule 40 mg PO DAILY Qty: 14 RF: 0 doxycycline monohydrate 50 mg capsule 50 mg PO DAILY Qty: 30 RF: 0 Mirena 20 mcg/24 hours (5 yrs) 52 mg intrauterine device 1 device IU CONTINOUS RF: 0 Admission Data Admit Date/Time: 05/06/19 14:46 Attending Provider: Sarah Leon Admit Provider: Leila Walters Primary Care Provider: PCP,NO Coding Level of Care Code D/C Day Management <30 mins Diagnoses Acute drug overdose T50.902A Encounter type: initial encounter Injury intent: intentional self-harm Signed By:<Electronically signed by Lanre Villegas DO> Total Time Total Time Spent Total Time Spent (In Minutes): <30 please only bill this episode of care on current V# not on prior accidentally mis-pasted one Discharge Plan Discharge Items Patient Disposition: Home - Self-Care Reason For Visit: OD Discharge Diagnosis: Overdose with suicidal intent Activity: Resume your previous activity Non-emergency contact: Primary Care Provider and Psychiatrist Call non-emergency contact if: you have any medication questions Follow-up/Referrals: PCP,NO [Primary Care Provider] - Diet: Regular Addtl Attending Provider Instructions: Ms. Gibson, You were seen and evaluated for an intensional overdose of Lamotrigine. After being medically cleared, it was recommended that you be admitted to the Psychiatric unit 3S for further monitoring and adjustment of medications to which you were amendable. Pending Studies at Discharge: No Stand-Alone Forms: My [facility] [employer], Smoking Cessation, Suicide Prevention Resources Medications and DC Order Prescriptions: Continued fluoxetine 40 mg capsule 40 mg PO DAILY Qty: 14 RF: 0 doxycycline monohydrate 50 mg capsule 50 mg PO DAILY Qty: 30 RF: 0 Mirena 20 mcg/24 hours (5 yrs) 52 mg intrauterine device 1 device IU CONTINOUS RF: 0 No Action hydroxyzine HCl 25 mg Tablet 50 mg PO HSZ PRN (Reason: sleep) Qty: 30 RF: 1 lamotrigine 100 mg Tablet 100 mg PO QAM Qty: 30 RF: 0 nicotine 7 mg/24 hr Patch 24 Hour 14 mg transdermal QAM Qty: 28 RF: 0 Discharge Orders: Discharge Order (Routine); Ordered 05/06/19 Ordered By: Favio Ariza/Other Patient Handouts: Suicide Warning Signs Self Admission Data Admit Date/Time: 05/06/19 04:03 Attending Provider: Lanre Villegas Admit Provider: Chance Reed Primary Care Provider: PCP,NO Other Providers: Kwasi Love ; Leila Walters Other Interventions: Discharge Summary Assessment (RN) Last Done: 05/06/19 14:42 DC Date/Time DO NOT enter until pt leaves facility: 05/06/19 15:41 Coding Level of Care Code D/C Day Management <30 mins Diagnoses Overdose T50.901A
== END 2019-05-06 15:41 | disposition home or self-care (01) | DRG 918 ==
LOC: ED 23:19 → 2S 05-06 04:03 → SUATTDRO 05-06 04:03 → 2S 05-06 04:35

== ENCOUNTER 2019-05-06 14:35 | Inpatient (IN) ==
--- NOTE | 2019-05-06 17:27 | Discharge Summary ---
Date of Service May 06, 2019 Principal Diagnosis suicide attempt by overdose Discharge Exam see progress note done same day in conjunction w dr gilliam. nad, breathing unlabored Discharge Data Allergies Allergy/AdvReac Type Severity Reaction Status Date / Time No Known Allergies Allergy Unverified 05/05/19 23:30 Hospital Course (1) Acute drug overdose: -stable; mentation improving no hepatic issues; phototypesetting equipment monitor raised question of arrhythmia but after further review appears to have been artifact ( and no clear mechanism for rhythm issues with overdose taken) ----fortunately medically stable for transfer to inpatient psych see same day progress note otherwise Total Time Total Time Spent Total Time Spent (In Minutes): <30 Discharge Plan Discharge Items Reason For Visit: DEPRESSION NOS Medications and DC Order Prescriptions: No Action trazodone 50 mg tablet 25 mg PO DAILY PRN (Reason: insomnia) Qty: 14 RF: 0 lamotrigine 100 mg tablet 100 mg PO DAILY Qty: 14 RF: 0 fluoxetine 40 mg capsule 40 mg PO DAILY Qty: 14 RF: 0 doxycycline monohydrate 50 mg capsule 50 mg PO DAILY Qty: 30 RF: 0 Mirena 20 mcg/24 hours (5 yrs) 52 mg intrauterine device 1 device IU CONTINOUS RF: 0 Admission Data Admit Date/Time: 05/06/19 14:46 Attending Provider: Sarah Leon Admit Provider: Leila Walters Primary Care Provider: PCP,NO Coding Level of Care Code D/C Day Management <30 mins Diagnoses Acute drug overdose T50.902A Encounter type: initial encounter Injury intent: intentional self-harm
[2019-05-06] MEDS ORDERED: ACETAMINOPHEN 325 MG TAB PO PRN (18:04)
[2019-05-06] MEDS ORDERED: BISMUTH SUBSALICYLATE PER ML OMNICELL CHARGE PO PRN (18:04)
[2019-05-06] MEDS ORDERED: MAGNESIUM HYDROXIDE SUSP 30 ML UDC PO PRN (18:04)
[2019-05-06] MEDS ORDERED: SODIUM CHLORIDE 0.65% NA SOLN 45 ML (OCEAN) PRN (18:04)
[2019-05-06] MEDS ORDERED: ALUMINUM/MAGNESIUM SUSP 30 ML UDC PO PRN (18:04)
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
[2019-05-07] MEDS: NICOTINE 14 MG/24 HR PATCH TD SCH (18:35)
[2019-05-08] MEDS: NICOTINE 14 MG/24 HR PATCH TD SCH (08:35)
--- NOTE | 2019-05-08 12:02 | Psychiatric Progress Note ---
Date of Service May 08, 2019 Impression / Recommendations Impression 23-year-old single female with a history of depression NOS, substance abuse, and a question of bipolar disorder versus borderline personality disorder, multiple previous hospitalizations, currently admitted for her second suicide attempt by overdose in a 6-month period. Both overdoses were triggered by romantic relationship problems, and she endorses symptoms of borderline personality disorder. She states that her mood was fairly well controlled from the time of her last hospitalization in the fall 2018 until the recent incident with her boyfriend, and that her regimen of lamotrigine, fluoxetine, and trazodone was helpful. Although initially ambivalent, patient is now requesting to resume this medication regimen. Family meeting has been scheduled for tomorrow afternoon, with mother providing some collateral information to staff already. Pt has not been engaged in programming, is not eating meals, and is not leaving her bed. Ongoing attempts by multiple staff members to engage patient in treatment and remind her of treatment expectations. As patient is reporting active SI with plan to use the bedsheets to hang herself and is unable to contract for safety on the unit, she will be moved to a private room and bedsheets will be removed. Pt has been placed on a safety tray, as she states she has been using ana laura to attempt to cut herself and would use sharper items if she were able to find any on the unit. We also need to work on her binge drinking as this is likely exacerbating mood symptoms. Inpatient treatment is medically necessary due to the severity of her symptoms, active suicidality and plan on the psychiatric unit, and high risk for suicide if discharged prematurely. (1) Acute drug overdose: 05/06 -supportive treatment was provided on the medical service; nausea and vomiting has resolved, and QTC was normal on admission. 05/07 - Pt continues to endorse active suicidality. Initially denying acute temptations to staff, patient does tell this provider that she is having thoughts to use the bed sheets to hang herself and has already attempted to cut herself with ana laura on the unit. She admits she is seeking out sharper items to use to self-harm. Pt stated she did not believe she would be able to inform staff of safety concerns prior to acting on these thoughts. Anticipated safety precautions were reviewed with the patient - Staff updated regarding safety concerns - Pt will be moved to [facility] and put on [facility] given that her plan is to use bedsheets to hang herself. Sheets removed from both beds and patient was provided with a safety blanket. Diet adjusted to safety tray, as patient reported actively seeking out sharp items to use to self-harm. - Continue to support patient while encouraging active engagement with treatment program. (2) Borderline personality disorder: 05/06 -reviewed diagnosis and treatment options with the patient. She endorses fear of abandonment, pattern of unstable and intense interpersonal relationships, identity disturbance, impulsivity, recurrent suicidal and self mutilating behavior, affect of instability due to marked reactivity of mood, feelings of emptiness, and stress-induced paranoia. She will benefit from ongoing psychoeducation and support, and return to outpatient psychotherapy. -Coordinate with Dr. Champion at [facility], as patient has not been seen in several months. 05/07 - Continues to be primary diagnosis - see concerns related to self-harm and suicidality above. Will continue to ensure patient's safety while maintaining appropriate boundaries - Pt is agreeable with resuming fluoxetine at 40mg and continuing lamotrigine. Pt states that while trazodone was helpful for sleep, she would l flores to continue hydroxyzine for sleep as she took a dose last evening and found it beneficial. While the above medications are not indicated to specifically treat borderline personality disorder, patient did feel that her psychiatric symptoms were under better control with this combination of medications. - Ongoing attempts to actively engage patient in treatment. She was reminded of patient rights and responsibilities - 72-hour notice was discussed at her request, though she declined to sign at this time. Pt was reminded that part of her responsibilities includes participating in treatment programs and engaging with staff to discuss discharge and aftercare plans. (3) Depression: 05/06 -patient reports the combination of lamotrigine, fluoxetine, and trazodone as needed were beneficial for mood. His medications were held on the medical service due to her overdose, and at the time of her assessment today she is undecided as to whether she wants to resume them. We will continue to discuss this and other treatment options with her. -She indicates she has been out of trazodone for some time, and has actually been sleeping excessively, so we will hold this medication for now and encourage her to be out of bed and participating in treatment. -Coordinate care with PONCHO Hendricks, at [place]. -Encourage patient to attend and participate in groups and therapy. -Work on healthy coping skills and discharge safety plan. -Recommend family meeting with parents. 05/07 - As above, patient requesting to resume fluoxetine and lamotrigine (4) Alcohol abuse: 05/06 - Brief intervention was offered and accepted Intervention was greater than 5 min in length. Brief interventions include: 1. Assess Readiness to Quit, 2. Advise: Help Patient to Reduce or Abstain from Alcohol, 3. Agree: Set Specific, Feasible Goals, 4. Assist: Anticipate barriers, Problem-Solving Solutions. Social work to 5. Arrange: Referrals to appropriate treatment. Summary of intervention: The patient is in precontemplation stage with regards to transtheoretical model of change. The patient is advised to decrease alcohol consumption due to depressant effects and risk of interactions with prescription medications. The patient agreed to try to cut back, and will be provided with recovery materials to continue to education self on how to cope with their condition without drinking. -Continue AWSS, monitoring for alcohol withdrawal. -Recovery protocol (5) Acne: 05/06 - Continue home dose of doxycycline. Coordinate care with PCP and ensure follow-up. 05/07 - Patient has been refusing scheduled dosing of doxycycline - patient has also not been eating here on the unit which is likely to contribute to GI side effects if patient should take the medication (6) Obese: 05/06 - Encourage healthy diet and regular physical activity. (7) Contraception management: Patient has Mirena IUD. Follow-up as needed with [facility]. Inventory Assets Strengths: Supportive family, has outpatient treatment providers Needs: Improved self-care, avoidance of substance use, regular attendance with outpatient appointments, focus on healthy relationships Risk Factors Assessment Male: No : Yes Do You Have Access To A Gun?: No (Father has a gun but it is locked and the patient does not have access.) Health Problems: No Mental Health Diagnoses: Yes Substance Use Disorders: Yes Previous Attempt: Yes Family History of Suicide: No Previous Psychiatric Hospitalization: Yes Hopelessness: Yes Smoker: Yes Protective Factors Assessment : No Responsible for Young Children: No Employed: Yes Stable Relationships: No Supportive Family: Yes Interval History Identifying Information RENETTA GIBSON is a 23-year-old F who currently lives in [place] with her parents, has a history of bipolar vs BPD with multiple previous hospitalizations and overdoses, and was admitted on 05/06/19 14:46 on a 201 voluntary commitment for intentional overdose of lamotrigine and alcohol. Chief Complaint "Oh, I'm living the dream..." Review of Systems Notes Constitutional: reports fatigue and decreased energy Cardiovascular: denied Respiratory: denied Gastrointestinal: denied Neurological: denied Psychiatric: denies symptoms other than stated above Total of at least 10 systems reviewed, pertinent positives as above and in HPI. Sleep Information Total Hours of Sleep: 8 Sleep Comments: pt given vistaril per rn. pt on q-15 minute checks Meal Information Percent Meal Consumed - Breakfast: 0 Percent Meal Consumed - Lunch: 0 Percent Meal Consumed - Dinner: 100 Subjective Subjective Patient was seen & assessed and interval progress reviewed with nursing and social work. Staff report the patient remained in her room most of the day yesterday, very limited interaction with staff or peers. Pt was not resumed on home medications, as she was unable/unwilling to discuss plans for compliance or perceived benefit. Pt was seen today to assess progress since admission. Pt is only minimally engaged in conversation. She states that she is still suicidal and does verbalize thoughts to use her bedsheets to hang herself. When asked if patient felt she could come to staff before acting on these thoughts, patient said "I don't know. Probably not." Pt was informed of our duty as staff to provide a safe environment for psychiatric treatment and was informed that we would likely need to take additional safety precautions if she is unable to present to staff with these concerns - this included removing her sheets. Pt states, "I don't care, do whatever." Pt also states that she has removed 3 ana laura from various packets on the unit and has attempted to cut herself - she admits that she would use sharper objects to self-harm if she was able to find any. Pt did verbalize a desire to resume fluoxetine and lamotrigine, as she did feel the medications had been helpful for her mood. She states that the titration of lamotrigine from 100mg to 125mg prior to admission was not yet n oticeably beneficial. Pt states that she is frustrated that hospitalizations "never work." When asked what her expectations for inpatient treatment have been, she states "it obviously hasn't worked if I have to keep coming back." Pt was reminded that outpatient follow-up is a vital part of maintaining psychiatric stability, and that her missed appointments are likely harmful for her overall treatment. Pt does acknowledge the truthfulness in this. She was reminded that as a patient admitted voluntarily, she has rights as well as responsibilities. Pt was informed that she is expected to be participating in group programming and engaging with staff to develop a safe discharge plan. Pt was asked what we could be doing to assist her with this. She did admit it was "awkward" that our census is low presently - but she was asked to utilize this as an opportunity for more focused 1:1 sessions. Pt was educated on signs and symptoms of SJS and HLH with regard to resuming her lamotrigine. She verbalized understanding and was agreeable with resuming fluoxetine and lamotrigine. She denied other needs or concerns from staff at this time. Physical Exam Psychiatric Orientation: alert and oriented x 3; + uncooperative (guarded, limited participation in conversation) Apperance: appropriately dressed and + disheveled (hair is unkempt); + inappropriately groomed Pt has been primarily in bed since admission. Eye Contact: + poor eye contact (eyes closed for most of interview) Motor Behavior: no abnormal motor movements (observed while laying in bed) Speech: normal rate/rhythm/volume of speech (soft tone, very brief responses to questions) Affect: + depressed affect and mood congruent with affect Mood: + depressed mood Thought Process: goal directed thought process and clear/coherent thought process Thought Content: + preoccupation (with break-up, SI ), + cognitive distortions, + hopelessness, + worthlessness and + loneliness Suicidal Thoughts: + reports suicidal thoughts, + reports suicidal plan and + reports suicidal intent Reports active plan here on the unit to use her bedsheets to hang herself. Homicidal Thoughts: denies homicidal thoughts Hallucinations: no auditory hallucinations and no visual hallucinations Cognition: attention grossly intact and language grossly intact Insight: + impaired insight Judgement: + impaired judgement Vital Signs (Past 24 Hours) Last Vital Signs Temp 36.5 C 05/08/19 06:40 Pulse 73 05/08/19 06:41 Resp 20 05/08/19 06:40 BP 113/76 05/08/19 06:41 Pulse Ox 98 05/07/19 14:37 Results & Data ([facility]) Current Inpatient Medications Current Inpatient Medications: Current Inpatient Medications Acetaminophen (Tylenol) 650 mg PO Q4H PRN PRN Reason: Headache or Minor Fever Stop: 06/05/19 18:03 Al Hydrox/Mg Hydrox/Simethicone (Maalox) 30 ml PO Q4H PRN PRN Reason: GI Upset Stop: 06/05/19 18:03 Bismuth Subsalicylate (Kaopectate) 15 ml PO PRN PRN PRN Reason: Loose Stool Stop: 06/05/19 18:03 Doxycycline Hyclate (Vibramycin) 50 mg PO DAILY RORO Stop: 06/07/19 08:59 Hydroxyzine HCl (Vistaril) 50 mg PO HSZ PRN PRN Reason: Insomnia Stop: 06/05/19 18:03 Last Admin: 05/07/19 20:59 Dose: 50 mg Documented by: Hydroxyzine HCl (Vistaril) 25 mg PO Q4H PRN PRN Reason: Anxiety Stop: 06/05/19 18:03 Magnesium Hydroxide (Milk Of Magnesia) 30 ml PO DAILY PRN PRN Reason: Constipation Stop: 06/05/19 18:03 Miscellaneous (Remove Nicoderm Patch) 1 ea N/A DAILY@[id number] [facility] Stop: 06/07/19 08:58 Last Admin: 05/08/19 08:36 Dose: 1 ea Documented by: Nicotine (Nicoderm Cq) 14 mg TD QAM [facility] Stop: 06/06/19 18:14 Last Admin: 05/08/19 08:35 Dose: 14 mg Documented by: Sodium Chloride ([place] Nasal) 1 - 2 sprays NA PRN PRN PRN Reason: Nasal Dryness/Congestion Stop: 06/05/19 18:03 Mental Health & Subst Abuse Tx Psychiatrist Name of Psychiatrist: Wesley Finch PA-C Psychiatrist's Date of Appointment with Psychiatrist: 05/23/19 Time of Appointment with Psychiatrist: 9:00 a.m. Psychiatric Appointment Comment: [phone] [facility] Therapist Name of Therapist: [facility] - Dr. Champion Therapist's Therapy Appointment Comment: [address] [facility] [place] Flour Blender Helper Name of Flour Blender Helper: [facility] Phone Number for Flour Blender Helper: [phone] Case Management Appointment Comment: 120 [facility] Post Discharge Appointments Primary Care Physician Name Of Family Doctor: JULISSA Wilson PA-C Primary Care Provider Appointment Comment: [phone] [facility] Contact Information Discharge Discharge Address: [address] [place] [address] (1) Acute drug overdose Encounter type: initial encounter Injury intent: intentional self-harm Qualified Code(s): T50.902A - Poisoning by unspecified drugs, medicaments and biological substances, intentional self-harm, initial encounter
[2019-05-08] MEDS: DOXYCYCLINE HYCLATE 50 MG CAP PO SCH ×2 (12:19→22:02)
[2019-05-08] MEDS: lamoTRIgine 100 MG TAB PO SCH (15:34)
[2019-05-08] MEDS: FLUOXETINE HCL 20 MG CAP PO SCH (15:35)
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
[2019-05-09] MEDS: DOXYCYCLINE HYCLATE 50 MG CAP PO SCH (08:46)
[2019-05-09] MEDS: FLUOXETINE HCL 20 MG CAP PO SCH (08:46)
[2019-05-09] MEDS: lamoTRIgine 100 MG TAB PO SCH (08:47)
[2019-05-09] MEDS: NICOTINE 14 MG/24 HR PATCH TD SCH (08:55)
[2019-05-10] MEDS: NICOTINE 14 MG/24 HR PATCH TD SCH (09:09)
[2019-05-10] MEDS: lamoTRIgine 100 MG TAB PO SCH (09:09)
[2019-05-10] MEDS: FLUOXETINE HCL 20 MG CAP PO SCH (09:10)
[2019-05-10] MEDS: DOXYCYCLINE HYCLATE 50 MG CAP PO SCH (09:10)
--- NOTE | 2019-05-10 10:26 | Psychiatric Progress Note ---
Date of Service May 10, 2019 Impression / Recommendations Impression 23-year-old single female with a history of depression NOS, substance abuse, question of bipolar disorder versus borderline personality disorder, and multiple previous hospitalizations who is currently admitted for her second suicide attempt by overdose in a 6-month period. Both overdoses were triggered by interpersonal relationship issues (pattern of breaking up with boyfriend, sleeping with numerous other people, then getting back together), and she endorses symptoms of borderline personality disorder. She states that her mood was fairly well controlled from the time of her last hospitalization in the fall 2018 until the recent incident with her boyfriend, and that her regimen of lamotrigine, fluoxetine, and trazodone was helpful. She has resumed this medication regimen, but is using hydroxyzine instead of trazodone for sleep. She spent her first 2 days in bed, isolating, and refusing to engage in programming, declining meals, yesterday reported active suicidal thoughts with a plan to use her bed sheets to hang herself, and removed the wire from a bra with intent to cut herself, so was placed on enhanced safety precautions, but over the following 24 hours this resolved and she was able to demonstrate good behavioral control. Family meeting with parents was held yesterday, and she is working on her discharge safety plan. Inpatient treatment is medically necessary due to the severity of her symptoms, active suicidality and plan on the psychiatric unit, and high risk for suicide if discharged prematurely. (1) Acute drug overdose: 05/06 -supportive treatment was provided on the medical service; nausea and vomiting has resolved, and QTC was normal on admission. 05/07 - Pt continues to endorse active suicidality. Initially denying acute t emptations to staff, patient does tell this provider that she is having thoughts to use the bed sheets to hang herself and has already attempted to cut herself with ana laura on the unit. She admits she is seeking out sharper items to use to self-harm. Pt stated she did not believe she would be able to inform staff of safety concerns prior to acting on these thoughts. Anticipated safety precauti ons were reviewed with the patient - Staff updated regarding safety concerns - Pt will be moved to [facility] and put on MNPR given that her plan is to use bedsheets to hang herself. Sheets removed from both beds and patient was provided with a safety blanket. Diet adjusted to safety tray, as patient reported actively seeking out sharp items to use to self-harm. - Continue to support patient while encouraging active engagement with treatment program. 05/08 -Patient is reporting improvement in suicidal thoughts, now feeling safe on the unit. We can return some of her belongings, and if able to maintain personal safety, will discontinue safe tray. -Family meeting today with parents; discuss recommendations for discharge safety planning, including avoidance of alcohol, particularly when u pset/distraught, and limiting her access to large amounts of medications or other items she could use to harm herself. Discussed the concept of the safety plan with the patient, including that it is ultimately her responsibility, along with her family/supports, to put this plan into action when needed. Assist with exploring and identifying high risk periods/red flags, which include interpersonal discord. 05/09 -Safety plan discussed in family meeting yesterday, and patient will continue to work on her discharge safety plan today. She has been denying SI/SIB for the past 24 hours. (2) Borderline personality disorder: 05/06 -reviewed diagnosis and treatment options with the patient. She endorses fear of abandonment, pattern of unstable and intense interpersonal relationships, identity disturbance, impulsivity, recurrent suicidal and self mutilating behavior, affective instability due to marked reactivity of mood, feelings of emptiness, and stress-induced paranoia. She will benefit from ongoing psychoeducation and support, and return to outpatient psychotherapy. -Coordinate with Dr. Champion at [facility], as patient has not been seen in several months. 05/07 - Continues to be primary diagnosis - see concerns related to self-harm and suicidality above. Will continue to ensure patient's safety while maintaining appropriate boundaries - Pt is agreeable with resuming fluoxetine at 40mg and continuing lamotrigine. Pt states that while trazodone was helpful for sleep, she would like to continue hydroxyzine for sleep as she took a dose last evening and found it beneficial. While the above medications are not indicated to specifically treat borderline personality disorder, patient did feel that her psychiatric symptoms were under better control with this combination of medications. - Ongoing attempts to actively engage patient in treatment. She was reminded of patient rights and responsibilities - 72-hour notice was discussed at her request, though she declined to sign at this time. Pt was reminded that part of her responsibilities includes participating in treatment programs and engaging with staff to discuss discharge and aftercare plans. 05/08 -Reviewed outpatient therapy notes; patient reported pattern of unstable and intense interpersonal relationships, seeking validation of her worth from u nknown men, sleeping with multiple individuals, and significant credit card debt which she was hiding from her parents. She also reported cheating repeatedly on exams in college. (3) Depression: 05/06 -patient reports the combination of lamotrigine, fluoxetine, and trazodone as needed were beneficial for mood. His medications were held on the medical service due to her overdose, and at the time of her assessment today she is undecided as to whether she wants to resume them. We will continue to discuss this and other treatment options with her. -She indicates she has been out of trazodone for some time, and has actually been sleeping excessively, so we will hold this medication for now and encourage her to be out of bed and participating in treatment. -Coordinate care with PONCHO Hendricks, at [facility]. -Encourage patient to attend and participate in groups and therapy. -Work on healthy coping skills and discharge safety plan. -Recommend family meeting with parents. 05/07 - As above, patient requesting to resume fluoxetine and lamotrigine 05/08 -Patient tolerating medications well, continue home doses. Trazodone has been replaced with hydroxyzine, as she found it more effective. 05/09 -Continue current medications. Differential diagnosis has been discussed with both the patient and her parents at length, and includes major depression and bipolar disorder type II versus borderline personality disorder. (4) Alcohol abuse: 05/06 - Brief intervention was offered and accepted Intervention was greater than 5 min in length. Brief interventions include: 1. Assess Readiness to Quit, 2. Advise: Help Patient to Reduce or Abstain from Alcohol, 3. Agree: Set Specific, Feasible Goals, 4. Assist: Anticipate barriers, Problem-Solving Solutions. Social work to 5. Arrange: Referrals to appropriate treatment. Summary of intervention: The patient is in precontemplation stage with regards to transtheoretical model of change. The patient is advised to decrease alcohol consumption due to depressant effects and risk of interactions with prescription medications. The patient agreed to try to cut back, and will be provided with recovery materials to continue to education self on how to cope with their condition without drinking. -Continue AWSS, monitoring for alcohol withdrawal. -Recovery protocol 04/11 -patient did not experience withdrawal symptoms. -She has been advised to avoid alcohol, especially when upset. -Follow-up with outpatient therapist and psychiatric care at [facility]. (5) Acne: 05/06 - Continue home dose of doxycycline. Coordinate care with PCP and ensure follow-up. 05/07 - Patient has been refusing scheduled dosing of doxycycline - patient has also not been eating here on the unit which is likely to contribute to GI side effects if patient should take the medication (6) Obese: 05/06 - Encourage healthy diet and regular physical activity. (7) Contraception management: Patient has Mirena IUD. Follow-up as needed with [facility]. Inventory Assets Strengths: Supportive family, has outpatient treatment providers Needs: Improved self-care, avoidance of substance use, regular attendance with outpatient appointments, focus on healthy relationships Risk Factors Assessment Male: No : Yes Do You Have Access To A Gun?: No (Father has a gun but it is locked and the patient does not have access.) Health Problems: No Mental Health Diagnoses: Yes Substance Use Disorders: Yes Previous Attempt: Yes Family History of Suicide: No Previous Psychiatric Hospitalization: Yes Hopelessness: Yes Smoker: Yes Protective Factors Assessment : No Responsible for Young Children: No Employed: Yes Stable Relationships: No Supportive Family: Yes Interval History Identifying Information RENETTA GIBSON is a 23-year-old F who currently lives in [place] with her parents, has a history of bipolar vs BPD with multiple previous hospitalizations and overdoses, and was admitted on 05/06/19 14:46 on a 201 voluntary commitment for intentional overdose of lamotrigine and alcohol. Chief Complaint " Good, better". Review of Systems Sleep Information Total Hours of Sleep: 7.75 Sleep Comments: received an hs prn dose of vistaril for sleep aid Meal Information Percent Meal Consumed - Breakfast: 100 Percent Meal Consumed - Lunch: 100 Percent Meal Consumed - Dinner: 100 Subjective Subjective Patient was seen & assessed and interval progress reviewed with nursing and social work. Staff report she attended and participated in groups yesterday, gave positive feedback to peers, and reported improved mood. Affect was improved, smiling and laughing at times. She was social with peers, working on a puzzle during her free time. She consistently denied suicidal thoughts and self injury yesterday. She had a family meeting with her parents of the social services assistant, during which parents were very supportive, encouraged her to make healthy relationship decisions, although patient stated she plan to continue talking regularly with her boyfriend/ex-boyfriend, despite identifying many p roblems in the relationship. We discussed discharge planning and safety plan. She met with the social services assistant one-on-one after the meeting to process, and further processed her suicide attempt and relationship patterns. She reported a pattern of breaking up with her boyfriend and then sleeping with multiple other men to fill the void, stating the last time they broke up, she slept with 20 different men. She said this makes her feel that she is wanted and helps her to feel better about herself. 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 On my assessment, she states that her mood continued to improve since yesterday, denies suicidal thoughts since 2 days ago, and plans to work on her discharge safety plan today. She states that her cat, Irwin, is protective, as "he needs me." She has been talking to her boyfriend daily, and is hopeful that they will reconcile, stating she wants them to "both work on her cells first." She is frustrated that he will not commit to this plan, and tells her he does not know if they will get back together. She reports improved appetite and sleep, and denies side effects to medications. She is hoping to be discharged in the next couple of days. Physical Exam Psychiatric Orientation: alert and cooperative Apperance: appropriately dressed Obese female appearing stated age. Seated in no acute distress. Multiple nose piercings, ear gauges, wearing glasses. Hair appears unwashed, mildly disheveled. Eye Contact: + fair eye contact Motor Behavior: steady gait and station and no abnormal motor movements Speech: normal rate/rhythm/volume of speech Affect still mildly depressed, but more reactive than earlier in stay. "Good, better." Thought Content: + cognitive distortions Suicidal Thoughts: denies suicidal thoughts Homicidal Thoughts: denies homicidal thoughts Hallucinations: no auditory hallucinations Cognition: remote memory grossly intact, attention grossly intact and language grossly intact Insight: + limited insight Judgement: + limited judgement Vital Signs (Past 24 Hours) Last Vital Signs Temp 36.6 C 05/10/19 06:55 Pulse 86 05/10/19 06:56 Resp 16 05/10/19 06:55 BP 114/77 05/10/19 06:56 Pulse Ox 98 05/07/19 14:37 Results & Data ([facility]) Current Inpatient Medications Current Inpatient Medications: Current Inpatient Medications Acetaminophen (Tylenol) 650 mg PO Q4H PRN PRN Reason: Headache or Minor Fever Stop: 06/05/19 18:03 Al Hydrox/Mg Hydrox/Simethicone (Maalox) 30 ml PO Q4H PRN PRN Reason: GI Upset Stop: 06/05/19 18:03 Bismuth Subsalicylate (Kaopectate) 15 ml PO PRN PRN PRN Reason: Loose Stool Stop: 06/05/19 18:03 Doxycycline Hyclate (Vibramycin) 50 mg PO DAILY [facility] Stop: 06/07/19 08:59 Last Admin: 05/10/19 09:10 Dose: 50 mg Documented by: Fluoxetine HCl (Prozac) 40 mg PO QAM [facility] Stop: 06/07/19 15:29 Last Admin: 05/10/19 09:10 Dose: 40 mg Documented by: Hydroxyzine HCl (Vistaril) 50 mg PO HSZ PRN PRN Reason: Insomnia Stop: 06/05/19 18:03 Last Admin: 05/09/19 20:59 Dose: 50 mg Documented by: Hydroxyzine HCl (Vistaril) 25 mg PO Q4H PRN PRN Reason: Anxiety Stop: 06/05/19 18:03 Last Admin: 05/08/19 16:04 Dose: 25 mg Documented by: Lamotrigine (Lamictal) 100 mg PO QAM [facility] Stop: 06/07/19 15:29 Last Admin: 05/10/19 09:09 Dose: 100 mg Documented by: Magnesium Hydroxide (Milk Of Magnesia) 30 ml PO DAILY PRN PRN Reason: Constipation Stop: 06/05/19 18:03 Miscellaneous (Remove Nicoderm Patch) 1 ea N/A DAILY@[id number] [facility] Stop: 06/07/19 08:58 Last Admin: 05/10/19 09:09 Dose: 1 ea Documented by: Nicotine (Nicoderm Cq) 14 mg TD [facility] Stop: 06/06/19 18:14 Last Admin: 05/10/19 09:09 Dose: 14 mg Documented by: Sodium Chloride (Stollings Nasal) 1 - 2 sprays NA PRN PRN PRN Reason: Nasal Dryness/Congestion Stop: 06/05/19 18:03 Mental Health & Subst Abuse Tx Psychiatrist Name of Psychiatrist: Wesley Finch PA-C Psychiatrist's Date of Appointment with Psychiatrist: 05/23/19 Time of Appointment with Psychiatrist: 9:00 a.m. Psychiatric Appointment Comment: [id number] [facility] Therapist Name of Therapist: [facility] - Dr. Champion [facility]rap[facility] Name of Dietitian: [facility] Phone Number for Dietitian: [phone] Case Management Appointment Comment: [address] [facility] Post Discharge Appointments Primary Care Physician Name Of Family Doctor: JULISSA Wilson PA-C Primary Care Provider Appointment Comment: [address] [facility] Contact Information Discharge Discharge Address: [address] [place] [address], [place] [address] (1) Acute drug overdose Encounter type: initial encounter Injury intent: intentional self-harm Qualified Code(s): T50.902A - Poisoning by unspecified drugs, medicaments and biological substances, intentional self-harm, initial encounter
[2019-05-11] MEDS: DOXYCYCLINE HYCLATE 50 MG CAP PO SCH (09:48)
[2019-05-11] MEDS: FLUOXETINE HCL 20 MG CAP PO SCH (09:48)
[2019-05-11] MEDS: NICOTINE 14 MG/24 HR PATCH TD SCH (09:48)
[2019-05-11] MEDS: lamoTRIgine 100 MG TAB PO SCH (09:48)
--- NOTE | 2019-05-11 12:04 | Discharge Summary ---
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 Agree: Set Specific, Feasible Goals, 4. Assist: Anticipate barriers, Problem-Solving Solutions. Social work to 5. Arrange: Referrals to appropriate treatment. Summary of intervention: The patient is in precontemplation stage with regards to transtheoretical model of change. The patient is advised to decrease alcohol consumption due to depressant effects and risk of interactions with prescription medications. The patient agreed to try to cut back, and will be provided with recovery materials to continue to education self on how to cope with their condition without drinking. -Continue AWSS, monitoring for alcohol withdrawal. -Recovery protocol 05/09 -patient did not experience withdrawal symptoms. -She has been advised to avoid alcohol, especially when upset. -Follow-up with outpatient therapist and psychiatric care at [facility]. 05/10 -Patient was able to talk openly about her misuse of alcohol today. She says that she "has to face" the fact that her suicide attempts have occurred while she has been drinking fairly heavily. We talked at some length about the fact that alcohol should be thought of as a drug that can cause or worsen depression over time, and that can also substantially interfere with treatment for depression and other mood disorders. It also, as the patient recognizes, can lower the impulse control and contributed to self-injurious behaviors, including suicide attempts. (5) Acne: 05/06 - Continue home dose of doxycycline. Coordinate care with PCP and ensure follow-up. 05/07 - Patient has been refusing scheduled dosing of doxycycline - patient has also not been eating here on the unit which is likely to contribute to GI side effects if patient should take the medication (6) Obese: 05/06 - Encourage healthy diet and regular physical activity. (7) Contraception management: Patient has Mirena IUD. Follow-up as needed with HUMAN RESOURCES SAFETY MANAGER. Mental Health & Subst Abuse Tx Psychiatrist Name of Psychiatrist: [facility] - Hanna Finch PA-C Psychiatrist's Date of Appointment with Psychiatrist: 05/23/19 Time of Appointment with Psychiatrist: 9:00 a.m. Psychiatric Appointment Comment: [phone] Psychiatrist Release of Information: Obtained, Reviewed and Signed Therapist Name of Therapist: [facility] - Dr. Champion Therapist's Therapy Appointment Comment: [address] [employer], [place] Therapist Release of Information: Obtained, Reviewed and Signed Maintenance Supervisor Mechanical Name of Maintenance Supervisor Mechanical: [employer] Phone Number for Maintenance Supervisor Mechanical: [phone] Date of Appointment with Maintenance Supervisor Mechanical: 05/14/19 Time of Appointment with Maintenance Supervisor Mechanical: 1pm Case Management Appointment Comment: They will call you. Maintenance Supervisor Mechanical Release of Information: Obtained, Reviewed and Signed Post Discharge Appointments Primary Care Physician Name Of Family Doctor: JULISSA Plummer PA-C Primary Care Provider Appointment Comment: [id number] [facility] Primary Care Release of Information: Obtained, Reviewed and Signed Smoking Cessation Counseling Tobacco Cessation Medication Prescribed at Discharge: Offered & Prescribed Tobacco Cessation Counseling: Offered and Refused Contact Information Discharge Discharge Address: [address] [place] [id number] Discharge Plan Discharge Items Patient Disposition: Home - Self-Care Reason For Visit: DEPRESSION NOS Discharge Diagnosis: Depression NOS Activity: Resume your previous activity Non-emergency contact: Psychiatrist and Therapist Call non-emergency contact if: you have any medication questions and your symptoms worsen Follow-up/Referrals: PCP,NO [Primary Care Provider] - Diet: Regular Addtl Attending Provider Instructions: SPECIAL CARE INSTRUCTIONS: 1. Follow through with your scheduled aftercare appointments. If unable to keep an appointment, please call to reschedule. 2. Take your medication only as prescribed. Medication should not be changed or stopped without the approval of your doctor. In the event of worsening symptoms or concerns about side effects, contact your doctor immediately. 3. Utilize new healthy coping skills, anger management skills, and stress management skills learned during your hospitalization. Journal feelings and process them with a support person. Identify stressors or situations that may result in relapse, deterioration or inappropriate behaviors and develop a plan to deal with those issues. 4. If your coping skills are ineffective and you are in crisis, contact your outpatient providers for direction. If unable to reach your providers, please call the CAN HELP LINE AT or go to the closest Emergency Room. 5. Avoid alcohol and un-prescribed drugs. 6. You have been provided with the Mental Health Advance Directives Pamphlet for your review. AFTERCARE APPOINTMENTS: * Please call your insurance company prior to your scheduled appointment to confirm your aftercare providers are covered. Take your insurance information to your appointments. WHO TO CALL AND WHEN: Medical Emergencies: For questions or emergencies related to your hospital stay, please contact the Inpatient Behavioral Health Unit at [phone]. A assessment clinician is on-call 06/09 for the Behavioral Health Unit for emergencies At any time you feel your situation is an emergency, you may also call 911 immediately. Your Doctors Instructions noted above were prepared by provider Noé Menchaca MD. Pending Studies at Discharge: No Stand-Alone Forms: My [facility], Smoking Cessation Medications and DC Order Prescriptions: New hydroxyzine HCl 25 mg Tablet 50 mg PO HSZ PRN (Reason: sleep) Qty: 30 RF: 1 lamotrigine 100 mg Tablet 100 mg PO QAM Qty: 30 RF: 0 nicotine 7 mg/24 hr Patch 24 Hour 14 mg transdermal QAM Qty: 28 RF: 0 Continued fluoxetine 40 mg capsule 40 mg PO DAILY Qty: 14 RF: 0 doxycycline monohydrate 50 mg capsule 50 mg PO DAILY Qty: 30 RF: 0 Mirena 20 mcg/24 hours (5 yrs) 52 mg intrauterine device 1 device IU CONTINOUS RF: 0 Discontinued lamotrigine 100 mg tablet 125 mg PO DAILY RF: 0 Discharge Orders: Discharge Order (Routine); Ordered 05/11/19 Ordered By: Noé Menchaca Admission Data Admit Date/Time: 05/06/19 14:46 Attending Provider: Sarah Leon Admit Provider: Leila Walters Primary Care Provider: PCP,NO Other Interventions: Discharge Summary Assessment (RN) Last Done: 05/11/19 10:36 PSY Interdisciplinary Discharge Planning Last Done: 05/11/19 11:06 DC Date/Time DO NOT enter until pt leaves facility: 05/11/19 11:15 Coding Level of Care Code 42797 D/C day mgmt > 30 min Diagnoses Acute drug overdose T50.902A Encounter type: initial encounter Injury intent: intentional self-harm Borderline personality disorder F60.3 Depression F32.9 Alcohol abuse F10.10 Acne L70.9 Obese E66.9 Contraception management Z30.9
== END 2019-05-11 11:15 | disposition home or self-care (01) | DRG 881 ==
LOC: 3S 14:46